=== PATIENT | female | born 1960 | race Caucasian/White ===

== ENCOUNTER 2018-04-24 14:14 | Outpatient (CLI) | payer BC, SELFPAY ==
--- NOTE | 2018-04-24 14:10 | DI.RAD_ITS ---
SYMPTOMS/DIAGNOSIS: PAIN PELVIS AND RIGHT HIP: The hip joint spaces are well maintained. There is mild acetabular spurring. A small bony density is seen adjacent to the right superior acetabulum. There is spurring from the iliac wings and greater trochanters. Mild spurring is also seen at the SI joints. IMPRESSION: Mild degenerative changes of both hips, right slightly greater than left. RIGHT KNEE: Weightbearing AP and lateral views were performed. There are small spurs from the medial femoral condyle, medial tibial plateau and patella. The joint spaces are well maintained. No joint effusion is visible. IMPRESSION: Mild degenerative changes.
== END 2018-04-24 14:34 ==
PROVIDERS: PCP Student in an Organized Health Care Education/Training Program; Visit Provider Physician Assistant Surgical
DX: M25.551 Pain in right hip (principal); M16.0 Bilateral primary osteoarthritis of hip; M25.561 Pain in right knee; M17.11 Unilateral primary osteoarthritis, right knee
CPT/HCPCS: 73502; 73560

== ENCOUNTER 2018-05-31 14:38 | Outpatient (CLI) | payer BC, SELFPAY ==
[2018-05-31 15:09] LABS: HCT 35.5 % (36.0-46.0); HGB 12.3 g/dL (12.0-15.5); Mean Corp. HGB Concentration 34.6 g/dL (32.0-36.0); Mean Corpuscular Hemoglobin 32.2 pg (27.0-33.0); Mean Corpuscular Volume 92.9 fL (80-95); Mean Platelet Volume 11.6 fL (8.0-11.0); Platelet Count 149 x1000/uL (130-400); RBC 3.82 m/cumm (4.00-5.20); RBC Distribution Width 12.3 % (11.7-14.6); White Blood Cell Count 6.12 k/cumm (4.4-10.8)
[2018-05-31 15:48] LABS: ALT 25 U/L (12-78); AST 20 U/L (15-37); Albumin 3.6 g/dL (3.4-5.0); Alkaline Phosphatase 96 U/L (46-116); Anion Gap 10.1 mmol/L (3-11); BUN 14 mg/dL (7-18); Bilirubin, Total 0.3 mg/dL (0.2-1.0); CO2 27.9 mmol/L (21.0-32.0); CREATININE 0.66 mg/dL (0.55-1.02); Calcium 8.7 mg/dL (8.5-10.1); Chloride 105 mmol/L (98-107); Cholesterol 148 mg/dL (50-200); Glucose 94 mg/dL (70-100); HDL Cholesterol 79 mg/dL (40-60); LDL CHOLESTEROL 58 mg/dL (<100); Potassium 3.9 mmol/L (3.5-5.1); Sodium 143 mmol/L (136-145); Total Protein 6.5 g/dL (6.4-8.2); Triglyceride 58 mg/dL (30-150)
== END 2018-05-31 14:58 ==
PROVIDERS: PCP Student in an Organized Health Care Education/Training Program; Visit Provider Student in an Organized Health Care Education/Training Program
DX: K51.90 Ulcerative colitis, unspecified, without complications (principal); J45.909 Unspecified asthma, uncomplicated; Z13.220 Encounter for screening for lipoid disorders; Z98.84 Bariatric surgery status
CPT/HCPCS: 36415; 80053; 80061; 83721; 85027

== ENCOUNTER 2018-06-21 16:42 | Outpatient (REF) | payer BC, SELFPAY ==
--- NOTE | 2018-06-21 15:25 | PAPFT_PTH ---
PATIENT: Adali Gomez LOC: [facility] U#:[id number] AGE/SX: 57/F ROOM: RE06/21/[address]: Stacy Webb NP : 1960 BED: DIS: 06/21/2018 SPEC #: [id number] RECD: 06/21/18 17:48 STATUS: HERBERT REICH #: [id number] JOANIE: 06/21/18 15:[address]: Stacy Webb NP DEPT: [facility] Cytology RECD BY: Jannet Mobley ENTERED: 06/21/18 17:48 SP TYPE: PAPFT OTHR DR: Kira Ying, DO Tissues: 1 - CX/ENDOCX FOR PAP SMEARS Procedures: PAP THIN PREP/[facility] Screening HPV DNA PROBE Comments: [id number]
== END 2018-06-21 17:02 ==
LOC: LBN 16:42
PROVIDERS: PCP Student in an Organized Health Care Education/Training Program; Visit Provider Nurse Practitioner Women's Health
DX: Z12.4 Encounter for screening for malignant neoplasm of cervix (principal); Z11.51 Encounter for screening for human papillomavirus (HPV)
CPT/HCPCS: 88142; 87624

== ENCOUNTER 2019-01-28 06:45 | Emergency (ER) | payer BC, SELFPAY ==
--- NOTE | 2019-01-28 06:50 | ED.GENADUL_ITS ---
Discharge Plan Disposition Patient Disposition: HOME Condition: Good Discharge Details Chief Complaint: RashLesion Clinical Impression: Rash Primary Care Provider: Kira Ying ED Provider: Quincy Mathur Home Meds and New Rx's Prescriptions: New loratadine 10 mg capsule 10 mg PO DAILY Qty: 10 RF: 0 hydroxyzine HCl 25 mg tablet 25 mg PO TID Qty: 20 RF: 0 prednisone 50 mg tablet 50 mg PO DAILY Qty: 5 RF: 0 No Action pregabalin 50 mg capsule 50 mg PO BID Qty: 180 RF: 2 sertraline 50 mg tablet 50 mg PO DAILY Qty: 90 RF: 4 fluticasone furoate 27.5 mcg/actuation spray,suspension 2 spray STEPHANI DAILY Qty: 18.2 RF: 0 multivitamin 1 EACH tablet 1 ea PO BID RF: 0 polyethylene glycol 3350 [Miralax] 17 GM powder in packet 17 g PO DAILY PRNRF: 0 anastrozole [Arimidex] 1 MG tablet 1 mg PO DAILY RF: 0 meclizine 25 MG tablet 25 mg PO TID PRNQty: 20 RF: 2 ascorbic acid (vitamin C) [Vitamin C] 1,000 MG tablet 1,000 mg PO DAILY RF: 0 epinephrine [EpiPen 2-Vincent] 0.3 MG/0.3 ML auto-injector 0.3 mg IM ONCE Qty: 1 RF: 1 cyanocobalamin (vitamin B-12) 1,000 MCG tablet 1,000 mcg PO DAILY RF: 0 albuterol sulfate [ProAir HFA] 90 mcg/actuation HFA aerosol inhaler 2 puff Inhalation Q4H PRN Qty: 1 RF: 3 cyclobenzaprine 10 mg tablet 10 mg PO HS PRN (Reason: muscle spasm) Qty: 10 RF: 1 Discharge Instructions Instructions: Acute Rash (ED) Additional Instructions: At this time it appears that your rash is hives, I am uncertain as to what brought it on though. It is important to watch her closely to see if it is worsening or improving. Please take the loratadine and Atarax as directed. If you do not note any improvement with this over the next 24 to 48 hours please start the steroid prednisone as directed. If you notice any worsening of your symptoms, or any new symptoms such as blisters, lesions in your mouth, burning when you pee, vomiting, diarrhea, fever, chills, shortness of breath, chest pain, numbness, weakness, or fainting , please return immediately to the [facility] department for reevaluation. Please follow up with your primary care provider as soon as possible for reassessment and reevaluation. As always, it was a pleasure participating in your medical care today. Referrals: Kira Ying DO [Primary Care Provider] - Medical Decision Making This is a pleasant 58-year-old female who presents with mild rash below the belt line. Rash is mildly itchy, however the itchiness is diffuse over her body although the rash is limited. She notably denies any contact with plants, changes in any soaps detergents or creams or close. No new pets. Physical exam demonstrates a very mild easily blanchable macular rash over the anterior abdomen and the buttock below the belt line. No concerning red flags of fever, antiepileptic medications. No current clinical evidence of staph scalded skin syndrome, erythema multiforme, erythema migrans, toxic epidermal necrolysis, Vanegas-Lamine syndrome, Kawasaki-like rash, meningococcemia, pemphigus vulgaris, or necrotizing fasciitis. Uncertain as to the exact causative etiology of the patient's rash, however it appears notably mild at this time. We will recommend Benadryl, loratadine and Atarax. Will recommend this treatment for the next 24 hours and if she notes no improvement then she should start her steroid. Discussed red flags which to return the importance of close follow-up. I have extensively reviewed the treatment plan and discharge instructions with the patient. I have addressed all patient concerns at this time. The patient was made aware of what symptoms to monitor for that would warrant a return to the emergency department. Discussed the plan with the patient, they demonstrate verbal understanding and agreement with our assessment and plan at this time. HPI General Date/Time Provider Initiated Documentation: 01/28/19 06:49 . HPI Narrative: This is a 58-year-old female with a past medical history of reactive airway disease, previous obesity, fibromyalgia, previous breast cancer in 2010 who presents today for evaluation of rash. Patient states that she initially noticed a mild rash below her belt line a few weeks ago that she attributed to heat and sweating, however this went away on its own. However 24 hours ago she again noticed a rash that started under her belt line, and is spread to her buttock region. And although the rash is relatively stationary to this area she has noted itching throughout her entire body. She denies any vesicles, chest pain, shortness of breath, dysuria. She does admit to some mild eye irritation. She denies any vision changes. She extensively denies any new detergents, soaps, fragrances, closed, sheets, pets, animals, lotions, foods, medications. She is not on any antiepileptic medications. Related Data Home Medications Medication Instructions Recorded Confirmed multivitamin 1 ea PO BID 05/22/12 11/01/18 polyethylene glycol 3350 [Miralax] 17 g PO DAILY PRN packet 04/11/14 11/01/18 anastrozole [Arimidex] 1 mg PO DAILY tab 07/25/15 11/01/18 meclizine 25 mg PO TID PRN #20 tab 07/25/15 11/01/18 ascorbic acid (vitamin C) [Vitamin 1,000 mg PO DAILY 08/30/16 11/01/18 C] epinephrine [EpiPen 2-Vincent] 0.3 mg IM ONCE #1 pen 08/30/16 11/01/18 cyanocobalamin (vitamin B-12) 1,000 mcg PO DAILY 01/14/17 11/01/18 albuterol sulfate 90 mcg/actuation 2 puff INHALATION Q4H PRN #1 12/08/17 11/01/18 aerosol inhaler inhaler pregabalin 50 mg capsule 50 mg PO BID #180 cap 06/14/18 11/01/18 sertraline 50 mg tablet 50 mg PO DAILY #90 tab-cap 06/14/18 11/01/18 fluticasone furoate 27.5 2 spray STEPHANI DAILY #18.2 ml 11/01/18 11/01/18 mcg/actuation nasal spray,suspension cyclobenzaprine 10 mg tablet 10 mg PO HS PRN #10 tab 01/12/19 hydroxyzine HCl 25 mg PO TID #20 tab 01/28/19 loratadine 10 mg PO DAILY #10 cap 01/28/19 prednisone 50 mg PO DAILY #5 tab 01/28/19 Previous Rx's Medication Instructions Recorded albuterol sulfate 90 mcg/actuation 2 puff INHALATION Q4H PRN #1 12/08/17 aerosol inhaler inhaler pregabalin 50 mg capsule 50 mg PO BID #180 cap 06/14/18 sertraline 50 mg tablet 50 mg PO DAILY #90 tab-cap 06/14/18 fluticasone furoate 27.5 2 spray STEPHANI DAILY #18.2 ml 11/01/18 mcg/actuation nasal spray,suspension cyclobenzaprine 10 mg tablet 10 mg PO HS PRN #10 tab 01/12/19 hydroxyzine HCl 25 mg PO TID #20 tab 01/28/19 loratadine 10 mg PO DAILY #10 cap 01/28/19 prednisone 50 mg PO DAILY #5 tab 01/28/19 Allergies Allergy/AdvReac Type Severity Reaction Status Date / Time Sulfa (Sulfonamide Allergy Severe rash Verified 12/15/18 15:30 Antibiotics) venom-honey bee Allergy Intermediate sick - Verified 12/15/18 15:30 lightheaded, nausea Review of Systems All systems reviewed & are unremarkable except as noted in HPI and below PFSH Medical History (Updated 12/15/18 @ 15:53 by Kira Ying DO) Acute medial meniscal injury of left knee (Acute 08/13/16) Allergic rhinitis (Chronic 05/04/11) Stefani-D, no longer (11/2018). Arthritis Asthma Asthma (Chronic 05/04/11) Primarily exercise-induced Backache, unspecified (Acute 05/04/11) Chest pain, unspecified (Acute 05/04/11) Complex tear of medial meniscus, current injury, left knee, subsequent encounter (Acute 08/13/16) De Quervain's tenosynovitis (Acute 04/16/15) Casper Feliciano MD Depressive disorder (Chronic 05/04/11) Doing well with Sertraline Exercise-induced asthma (Chronic 05/04/11) Primarily exercise-induced Family history of colon cancer (Chronic 05/04/11) RECTAL CANCER Fibromyalgia (Chronic) Rheumatology [facility] H/O dysmenorrhea (Acute 05/04/11) last annual [facility] 12/13/11; NOW POST MENOPAUSAL Herpes simplex (Acute 05/04/11) Herpes simplex with unspecified complication (Acute 05/04/11) Internal derangement of right knee (Chronic) Injected 04/24/2018 Lump or mass in breast (Acute 05/04/11) Malignant neoplasm of female breast Malignant neoplasm of female breast (Acute 10/19/10) BILATERAL PARTIAL MASTECTOMIES, DR GARCIA ([facility]) ONCOLOGY Morbid obesity (Resolved 05/04/11) Myalgia and myositis (Chronic 05/04/11) Neurogenic thoracic outlet syndrome (Chronic 03/12/16) Left Obesity Obstructive sleep apnea (Chronic 06/29/16) [facility] severe CPAP Onychia of finger (Acute 05/04/11) Pes anserinus bursitis of both knees (Acute 08/26/16) Premenopausal menorrhagia Rectal/anal hemorrhage (Acute 05/04/11) Recent flare of rectal bleeding (Mar 2017), awaiting GI eval (May 2017) Rheumatoid arthritis (Chronic 05/04/11) Trochanteric bursitis, left hip (Chronic) Ulcerative colitis, unspecified (Chronic 05/04/11) POSSIBLE INFLAM BOWEL VS PROCTITIS, [facility] REC GI CONSULT, PATHOLOGY UNCLEAR per patient report form recent GI visit, 06/2017 Ulcerative proctitis Surgical History (Updated 12/15/18 @ 16:31 by Kira Ying DO) Arthroplasty of knee left Cholecystectomy (03/21/94) [facility] CT Colonoscopy - MAC (03/08/17) 2013 CYST REMOVAL NECK Hx of bariatric surgery (Acute) [facility] Dr Segal, Sleeve Gastrectomy, Dec 2016 Ligation of fallopian tube Oophrectomy, Right PARTIAL MASTECTOMY (11/10/10) B/L sleeve gastrectomy (01/03/17) [facility] Dr Segal Social History Smoking/Tobacco Use Status: Former Tobacco Use Drug use: Never Female Reproductive History Menstrual Menopause type: natural Exam Narrative Exam Narrative: 1.Const: Well-nourished, Well-developed, appearing stated age 2.Eyes: PERRL, no conjunctival injection, and symmetrical lids. 3.ENT: Atraumatic external nose and ears. Moist MM. Neck: Symmetric, trachea midline, No thyromegaly. 4.CVS: +S1/S2, No murmurs or gallops. Peripheral pulses 2+ and equal in all extremities. Brisk capillary refill in all extremities. 5.RESP: Unlabored respiratory effort. Clear to auscultation bilaterally. No wheezes rales or rhonchi 6.GI: Soft, Nontender/Nondistended, No hepatosplenomegaly. No guarding or rebound. 7.MSK: Normocephalic/Atraumatic, Extremities w/o deformity or ttp No cyanosis or clubbing, Normal movement of all extremities 8.Skin: Warm, Dry. There is a very light, mild, easily blanchable diffuse macular rash primarily below the belt line in the anterior abdomen and the buttock. 2 or 3 small lesions noted on the left forearm. No lesions in the intertriginous areas. No lesions on the palms or soles of the feet. Negative Nikolsky sign. No large vesicles or bulla. No palpable purpura. No oral lesions. No mucosal lesions. No evidence of severe cellulitis. No evidence of vaccine preventable rash. 9.Neuro: mannequin maker II-XII grossly intact. Sensation grossly intact, no focal neurologic deficits. 10.Psych: (AAO) x3. Appropriate mood and affect
[2019-01-28 06:59] VITALS: BP 125/74; PULSE 91; RESP 18; TEMP 37; O2SAT 99
[2019-01-28 07:21] VITALS: BP 125/74; PULSE 91; RESP 18; TEMP 37; O2SAT 99
== END 2019-01-28 07:19 | disposition home or self-care (01) ==
LOC: ER 07:15
PROVIDERS: Emergency Provider Student in an Organized Health Care Education/Training Program; PCP Student in an Organized Health Care Education/Training Program
DX: R21 Rash and other nonspecific skin eruption (principal); L29.9 Pruritus, unspecified
CPT/HCPCS: 99283

== ENCOUNTER 2019-11-07 00:35 | Outpatient (CLI) | payer BC, SELFPAY ==
--- NOTE | 2019-11-07 07:12 | DI.RAD_ITS ---
EXAM: XR CERVICAL SPINE COMP 4-5V CLINICAL HISTORY: r/o bony pathology,LUE NUMBNESS,H/O NECK PAIN,Z87.39,R20.0. TECHNIQUE: 2D digital imaging was performed. COMPARISON: No exams were available for comparison FINDINGS: BONES: No fracture or destructive lesion. DISKS: Intervertebral disc spaces are maintained. There are endplate osteophytes, projecting mainly anteriorly.. There are facet degenerative changes greatest at C4-5 and C7-T1. There is no visible neural foraminal narrowing. ALIGNMENT: Cervical spinal alignment is within normal limits. The odontoid and atlantoaxial articulat ions are normal. SOFT TISSUE: Normal. The lung apices are clear. IMPRESSION: Mild degenerative changes. DATA REPOSITORY: RADIATION DOSE DELIVERED:
== END 2019-11-07 00:55 ==
PROVIDERS: PCP Student in an Organized Health Care Education/Training Program; Visit Provider Student in an Organized Health Care Education/Training Program
DX: M47.812 Spondylosis without myelopathy or radiculopathy, cervical region (principal)
CPT/HCPCS: 72050

== ENCOUNTER 2020-01-02 02:24 | Outpatient (CLI) | payer BC, SELFPAY ==
[2020-01-02 07:49] LABS: HCT 36.6 % (36.0-46.0); HGB 12.8 g/dL (11.2-15.7); MCH 33.2 pg (27.0-33.0); MCV 95.1 fL (80-95); MPV 11.6 fL (8.0-11.0); Platelet Count 166 10^3/uL (130-400); RBC 3.85 10^6/uL (3.93-5.22); RDW 11.8 % (11.7-14.6); RDW-SD 40.8 fL; WBC 5.84 10^3/uL (4.4-10.8)
[2020-01-02 08:42] LABS: Anion Gap 8.2 mmol/L (3-11); BUN 13 mg/dL (7-18); CO2 29.8 mmol/L (21.0-32.0); CREATININE 0.57 mg/dL (0.55-1.02); Calcium 8.9 mg/dL (8.5-10.1); Calculated LDL 70 mg/dL (<100); Chloride 106 mmol/L (98-107); Cholesterol 177 mg/dL (<200); Glucose 81 mg/dL (74-106); HDL Cholesterol 88 mg/dL (40-60); Potassium 3.7 mmol/L (3.5-5.1); Sodium 144 mmol/L (136-145); TSH (W/Ref FT4) 1.19 uIU/mL (0.36-3.74); Triglyceride 98 mg/dL (<150)
== END 2020-01-02 02:44 ==
PROVIDERS: PCP Student in an Organized Health Care Education/Training Program; Visit Provider Student in an Organized Health Care Education/Training Program
DX: N63.0 Unspecified lump in unspecified breast (principal); Z79.1 Long term (current) use of non-steroidal anti-inflammatories (NSAID)
CPT/HCPCS: 36415; 80048; 80061; 85027; 84443

== ENCOUNTER 2020-06-02 17:17 | Outpatient (CLI) | payer BC, SELFPAY ==
--- NOTE | 2020-06-02 17:15 | RT.EKG_ITS ---
APPROVED REPORT Exam: Resting ECG Patient Location: O HR:66 bpm ECG Measurements Heart Rate 66 AXIS TN 165 P 36 QRSd 95 QRS 8 QT 389 T 31 QTc 409 Conclusion Sinus rhythm...normal P axis, V-rate 60- 99 Normal Electrocardiogram
== END 2020-06-02 17:18 | disposition home or self-care (01) ==
LOC: DI.CM 17:17
PROVIDERS: PCP Student in an Organized Health Care Education/Training Program; Visit Provider Physician Assistant
DX: R07.9 Chest pain, unspecified (principal)
CPT/HCPCS: 93010

== ENCOUNTER 2020-06-02 18:10 | Emergency (ER) | payer BC, SELFPAY ==
[2020-06-02] VITALS (40 sets, daily range): BP systolic 114–154; BP diastolic 60–101; PULSE 68–82; RESP 10–26; TEMP 36.3–36.6; O2SAT 96–100
--- NOTE | 2020-06-02 18:00 | RT.EKG_ITS ---
APPROVED REPORT Exam: Resting ECG Patient Location: E HR:73 bpm ECG Measurements Heart Rate 73 AXIS UT 149 P 51 QRSd 97 QRS -10 QT 371 T 42 QTc 409 Conclusion Sinus rhythm...normal P axis, V-rate 60- 99 I have reviewed and interpreted ECG and agree with software generated interpretation. Otherwise normal ECG
--- NOTE | 2020-06-02 18:30 | DI.RAD_ITS ---
EXAM: XR CHEST 2V PA LATERAL CLINICAL HISTORY: pain TECHNIQUE: 2D digital imaging was performed. COMPARISON: CR CHEST 2 VIEWS PA,LAT from 05/26/2017 FINDINGS: The heart is not enlarged. The lungs are clear and well expanded. No pleural effusion seen. Mediastin al contours appear intact. Surgical clips noted in both breasts and in the right upper quadrant of t he abdomen. IMPRESSION: No evidence of acute process. RADIATION DOSE DELIVERED: Total DLP
[2020-06-02 19:07] LABS: Abs Immature Grans 0.01 10^3/uL (0.0-0.06); Absolute Basophil Count 0.03 10^3/uL (0.0-0.2); Absolute Lymphocyte Count 2.46 10^3/uL (1.2-3.4); Absolute Monocyte Count 0.38 10^3/uL (0.1-0.8); Absolute Neutrophil Count 3.11 10^3/uL (1.2-6.7); Basophils % 0.5; Eosinophils % 1.6; HCT 39.7 % (36.0-46.0); HGB 13.6 g/dL (11.2-15.7); Immature Grans % 0.2; Lymphocytes % 40.4; MCH 33.1 pg (27.0-33.0); MCHC 34.3 % (32.0-36.0); MCV 96.6 fL (80-95); Monocytes % 6.2; Neutrophils % 51.1; Nucleated RBC 0 %; Platelet Count 181 10^3/uL (130-400); RBC 4.11 10^6/uL (3.93-5.22); RDW 12.1 % (11.7-14.6); RDW-SD 43.1 fL; WBC 6.09 10^3/uL (4.4-10.8)
[2020-06-02] MEDS: Aspirin 81 MG CHEW 324 MG CH (19:11)
--- NOTE | 2020-06-02 19:16 | W.ED.GENAD ---
Discharge Plan Disposition Patient Disposition: HOME Condition: Stable Discharge Details Clinical Impression: Chest pain, unspecified Primary Care Provider: Kira Ying ED Provider: Rohit Hightower Home Meds and New Rx's Prescriptions: Continued epinephrine [EpiPen 2-Vincent] 0.3 mg/0.3 mL auto-injector 0.3 mg IM ONCE Qty: 1 RF: 1 fluticasone furoate 27.5 mcg/actuation spray,suspension 2 spray STEPHANI DAILY Qty: 18.2 RF: 0 multivitamin 1 EACH tablet 1 ea PO BID RF: 0 anastrozole [Arimidex] 1 MG tablet 1 mg PO DAILY RF: 0 meclizine 25 MG tablet 25 mg PO TID PRNQty: 20 RF: 2 ascorbic acid (vitamin C) [Vitamin C] 1,000 MG tablet 1,000 mg PO DAILY RF: 0 cyanocobalamin (vitamin B-12) 1,000 MCG tablet 1,000 mcg PO DAILY RF: 0 calcium citrate-vitamin D3 315-200 mg-unit tablet 2 tab PO BID RF: 0 ibuprofen 800 mg tablet 800 mg PO TID PRN (Reason: pain) Qty: 60 RF: 0 sertraline 50 mg tablet 50 mg PO DAILY RF: 0 Discharge Instructions Instructions: Chest Pain (ED) Additional Instructions: At this time your rapid cardiac rule out here in the ER was negative. You responded nicely to the GI cocktail, likely discussed, you may use [id number] medications such as omeprazole for symptomatic control. We discussed the importance of watching for new or worsening symptoms and return to the ER for any concerns. Otherwise I would like you to contact your primary care provider for prompt outpatient reevaluation. We discussed that outpatient stress test and/or echocardiogram for further evaluation of a cardiac etiology very well may be indicated. Medical Decision Making This is a 59-year-old female presenting with 3-day history of intermittent anterior, central, slightly left chest pain. Nothing really makes it better or worse, later she tells me that rubbing the area does make it slightly better. She denies cardiac history, recent illness or trauma, shortness of breath, cough, radiation of her discomfort. She had what she described as indigestion last week, took Tums with full resolution of those symptoms. She does have reproducible chest wall discomfort. Overall I feel as though her presentation is low suspicion for ACS; however, will initiate a cardiac work-up, give full dose aspirin. Patient is comfortable with this plan. Initial laboratory values are unremarkable for obvious emergent process. Patient was given a GI cocktail and reports that her pain has resolved completely. Heart score 3, low risk stratification category Discussed overall evaluation and risk stratification. Patient is agreeable to awaiting a repeat EKG and troponin at the 3-hour timeframe. Patient resting comfortably, no acute distress, remains asymptomatic. Reports that her pain is returning slightly, requesting another GI cocktail. GI cocktail given, patient once again asymptomatic. Repeat EKG obtained at 2214, please see official report by Dr. Mathur. Sinus rhythm, ventricular rate of 70. No STEMI. Repeat troponin remains less than 0.05. Discussed repeat EKG and troponin with patient. Patient remains asymptomatic. Once again discussed low risk stratification. Using shared decision-making we discussed disposition. Patient would prefer to be discharged home, will contact her primary care provider tomorrow to discuss outpatient reevaluation including potential stress test and echocardiogram for her discomfort. In the meantime given there seems to be some GI component, she will take [id number] omeprazole for her symptoms. She was encouraged to return to the ER for new or worsening symptoms. She is comfortable with this plan and has no additional questions or concerns. Medical Records Medical records reviewed: Yes I reviewed the patient's medical records. Imaging Data Radiologic Study: Attestation: I personally reviewed and interpreted this imaging study as follows: Imaging: X-Ray Radiologist's impression: Chest x-ray read by radiology as negative Lab Data Lab results reviewed: Yes I reviewed the patient's lab results. Lab results narrative: Laboratory Tests Range/Units 06/02/20 06/02/20 06/02/20 18:20 18:20 18:20 WBC (4.4-10.8) 10^3/uL 6.09 RBC (3.93-5.22) 10^6/uL 4.11 Hgb (11.2-15.7) g/dL 13.6 Hct (36.0-46.0) % 39.7 MCV (80-95) fL 96.6 H MCH (27.0-33.0) pg 33.1 H MCHC (32.0-36.0) % 34.3 RDW (11.7-14.6) % 12.1 Plt Count (130-400) 10^3/uL 181 MPV (8.0-11.0) fL 12.0 H Immature Gran % 0.2 Neutrophils % 51.1 Lymphocytes % 40.4 Monocytes % 6.2 Eosinophils % 1.6 Basophils % 0.5 Nucleated RBC % % 0 Absolute Neutrophils (1.2-6.7) 10^3/uL 3.11 Absolute Lymphocytes (1.2-3.4) 10^3/uL 2.46 Absolute Monocytes (0.1-0.8) 10^3/uL 0.38 Absolute Eosinophils (0.0-0.7) 10^3/uL 0.10 Absolute Basophils (0.0-0.2) 10^3/uL 0.03 PT (9.3-11.0) sec 10.4 INR (0.9-1.1) 1.0 APTT (21.0-27.5) sec 23.6 Sodium (136-145) mmol/L 141 Potassium (3.5-5.1) mmol/L 3.3 L Chloride (98-107) mmol/L 103 Carbon Dioxide (21.0-32.0) mmol/L 29.5 Anion Gap (3-11) mmol/L 8.5 BUN (7-18) mg/dL 14 Creatinine (0.55-1.02) mg/dL 0.7 Estimated GFR/1.73 m2 (mL/min/1.73m2) >= 60.00 Glucose (74-106) mg/dL 96 Calcium (8.5-10.1) mg/dL 9.2 Magnesium (1.8-2.4) mg/dL 2.1 Total Bilirubin (0.2-1.0) mg/dL 0.4 AST (15-37) U/L 19 ALT (14-59) U/L 24 Alkaline Phosphatase (46-116) U/L 92 Troponin I (<0.06) ng/mL < 0.05 Total Protein (6.4-8.2) g/dL 8.1 Albumin (3.4-5.0) g/dL 4.2 Range/Units 06/02/20 21:43 WBC (4.4-10.8) 10^3/uL RBC (3.93-5.22) 10^6/uL Hgb (11.2-15.7) g/dL Hct (36.0-46.0) % MCV (80-95) fL MCH (27.0-33.0) pg MCHC (32.0-36.0) % RDW (11.7-14.6) % Plt Count (130-400) 10^3/uL MPV (8.0-11.0) fL Immature Gran % Neutrophils % Lymphocytes % Monocytes % Eosinophils % Basophils % Nucleated RBC % % Absolute Neutrophils (1.2-6.7) 10^3/uL Absolute Lymphocytes (1.2-3.4) 10^3/uL Absolute Monocytes (0.1-0.8) 10^3/uL Absolute Eosinophils (0.0-0.7) 10^3/uL Absolute Basophils (0.0-0.2) 10^3/uL PT (9.3-11.0) sec INR (0.9-1.1) APTT (21.0-27.5) sec Sodium (136-145) mmol/L Potassium (3.5-5.1) mmol/L Chloride (98-107) mmol/L Carbon Dioxide (21.0-32.0) mmol/L Anion Gap (3-11) mmol/L BUN (7-18) mg/dL Creatinine (0.55-1.02) mg/dL Estimated GFR/1.73 m2 (mL/min/1.73m2) Glucose (74-106) mg/dL Calcium (8.5-10.1) mg/dL Magnesium (1.8-2.4) mg/dL Total Bilirubin (0.2-1.0) mg/dL AST (15-37) U/L ALT (14-59) U/L Alkaline Phosphatase (46-116) U/L Troponin I (<0.06) ng/mL < 0.05 Total Protein (6.4-8.2) g/dL Albumin (3.4-5.0) g/dL ECG Data Attestation: I personally reviewed and interpreted this ECG (s) as follows: Interpretation: Initial EKG reviewed by Dr. Mathur, please see his official report. Sinus rhythm, ventricular rate of 73, no STEMI. HPI General Mode of arrival: ambulatory. Date/Time Provider Initiated Documentation: 06/02/20 18:27. Limitations to Documentation: no limitations. Information obtained by: patient. HPI Narrative: This is a 59-year-old female, past medical history that includes bilateral breast cancer currently in remission, partial mastectomy, arthritis, asthma, depression, fibromyalgia, former smoker, presenting to the ER today for what she describes as 3-day history of intermittent chest pain. Patient states that the pain has been well over her central anterior chest may be slightly worse on the left side. Nothing really makes it worse or better. She states that she did have increased belching yesterday. Mild global headache over the past couple of days. She was experiencing acid reflux sometime last week, took Tums and the pain resolved completely. Patient states that she has been rubbing the area with her fingers and this does seem to make her symptoms better. Pain does not radiate to her back, into her shoulders, jaw, neck, down her arm. She denies numbness, tingling, weakness. Denies recent illness or trauma. Denies visual changes, shortness of breath, difficulty breathing, abdominal pain, nausea, vomiting, change in bowel or bladder function. Patient states a normal stress test likely 10 years ago. Her pain is described as sharp and aching, worse was a 10 out of 10 yesterday, now a 4 out of 10. Related Data Home Medications Medication Instructions Recorded Confirmed multivitamin 1 ea PO BID 05/22/12 06/02/20 anastrozole [Arimidex] 1 mg PO DAILY tab 07/25/15 06/02/20 meclizine 25 mg PO TID PRN #20 tab 07/25/15 06/02/20 ascorbic acid (vitamin C) [Vitamin 1,000 mg PO DAILY 08/30/16 06/02/20 C] cyanocobalamin (vitamin B-12) 1,000 mcg PO DAILY 01/14/17 06/02/20 fluticasone furoate 27.5 2 spray STEPHANI DAILY #18.2 ml 11/01/18 06/02/20 mcg/actuation nasal spray,suspension calcium citrate 315 mg-vitamin D3 2 tab PO BID tab 02/01/19 06/02/20 5 mcg (200 unit) tablet epinephrine 0.3 mg/0.3 mL 0.3 mg IM ONCE #1 pen 10/25/19 06/02/20 injection, auto-injector ibuprofen 800 mg tablet 800 mg PO TID PRN #60 tab 01/12/20 06/02/20 sertraline 50 mg PO DAILY 06/02/20 06/02/20 Previous Rx's Medication Instructions Recorded fluticasone furoate 27.5 2 spray STEPHANI DAILY #18.2 ml 11/01/18 mcg/actuation nasal spray,suspension epinephrine 0.3 mg/0.3 mL 0.3 mg IM ONCE #1 pen 10/25/19 injection, auto-injector ibuprofen 800 mg tablet 800 mg PO TID PRN #60 tab 01/12/20 Allergies Allergy/AdvReac Type Severity Reaction Status Date / Time Sulfa (Sulfonamide Allergy Severe rash Verified 06/02/20 18:21 Antibiotics) venom-honey bee Allergy Intermediate sick - Verified 06/02/20 18:21 lightheaded, nausea General Stated Complaint: Chest Pain WINSOME: 2 Review of Systems Constitutional Constitutional: Denies fatigue, Denies fever(s), Reports headache(s) and Denies weakness Eyes Eyes: Denies change in vision ENT Ears, Nose, Mouth, and Throat: Reports headache(s) and Denies neck pain Cardiovascular Cardiovascular: Reports chest pain and Denies dyspnea Respiratory Respiratory: Denies cough and Denies dyspnea Gastrointestinal Gastrointestinal: Denies abdominal pain, Reports belching, Denies nausea and Denies vomiting Genitourinary Genitourinary: Denies dysuria Musculoskeletal Musculoskeletal: Denies myalgias, Denies neck pain, Denies numbness and Denies tingling Integumentary/Breasts Skin/Breast: Denies rash Neurologic Neurologic: Reports headache(s), Denies numbness, Denies tingling and Denies weakness Endocrine Endocrine: Denies fatigue [facility] Medical History (Updated 06/02/20 @ 22:38 by REHAN Lee) Acute medial meniscal injury of left knee (08/13/16) Allergic rhinitis (05/04/11) Stefani-D, no longer (11/2018). Arthritis Asthma Asthma (05/04/11) Primarily exercise-induced Backache, unspecified (05/04/11) Chest pain, unspecified (05/04/11) Complex tear of medial meniscus, current injury, left knee, subsequent encounter (08/13/16) De Quervain's tenosynovitis (04/16/15) Casper Feliciano MD Depressive disorder (05/04/11) Doing well with Sertraline Exercise-induced asthma (05/04/11) Primarily exercise-induced Family history of colon cancer (05/04/11) RECTAL CANCER Fibromyalgia Rheumatology [facility] H/O dysmenorrhea (05/04/11) last annual [facility] 12/13/11; NOW POST MENOPAUSAL Herpes simplex (05/04/11) Herpes simplex with unspecified complication (05/04/11) Internal derangement of right knee Injected 04/24/2018 Left upper extremity numbness Occurs with outstretched, ext rot, pressured left arm stance .. Probable radiculopathy Lump or mass in breast (05/04/11) ID'd as cancerous, s/p surgery.. Malignant neoplasm of female breast Malignant neoplasm of female breast (10/19/10) BILATERAL PARTIAL MASTECTOMIES, DR GARCIA ([facility]) ONCOLOGY Morbid obesity (05/04/11) Myalgia and myositis (05/04/11) Neurogenic thoracic outlet syndrome (03/12/16) Left Obesity Obstructive sleep apnea (06/29/16) [facility] severe CPAP Onychia of finger (05/04/11) Pes anserinus bursitis of both knees (08/26/16) Premenopausal menorrhagia Rectal/anal hemorrhage (05/04/11) Recent flare of rectal bleeding (Mar 2017), awaiting GI eval (May 2017) Rheumatoid arthritis (05/04/11) Trochanteric bursitis, left hip Ulcerative colitis, unspecified (05/04/11) No active disease x mos, 10/2019. POSSIBLE INFLAM BOWEL VS PROCTITIS, [facility] REC GI CONSULT, PATHOLOGY UNCLEAR per patient report form recent GI visit, 06/2017 Ulcerative proctitis Surgical History Arthroplasty of knee left Cholecystectomy (03/21/94) [facility] Colonoscopy - MAC (03/08/17) 2013 CYST REMOVAL NECK Hx of bariatric surgery [facility] Dr Segal, Sleeve Gastrectomy, Dec 2016 Ligation of fallopian tube Oophrectomy, Right PARTIAL MASTECTOMY (11/10/10) B/L sleeve gastrectomy (01/03/17) [facility] Dr Segal Family History Grandmother Personal history of malignant neoplasm LUNG Aunt No problems noted. Father No problems noted. Social History Smoking/Tobacco Use Status: Former Tobacco Use Smoking risk assessment performed?: Yes Alcohol Intake: current Alcohol Intake frequency: 0-2 drinks per day Alcohol type: wine Drug use: Never Substance use type: does not use Household members: spouse Housing: house Number of Children: 2 number of grandchildren: 3 current occupation: MUSEUM TECHNICIAN What type of physical activity do you participate in: walking, independent ambulation and regular exercise Do you feel safe at home: Yes Do you feel safe in your relationship?: Yes Female Reproductive History Menstrual Menopause type: natural Exam Const General: cooperative, healthy appearing, comfortable and no acute distress Orientation: alert, awake and oriented x3 HENMT Head: normal to inspection, normocephalic and atraumatic Face and sinus: normal facial exam Mouth: moist mucous membranes Eyes General: appearance normal, both eyes and all related structures Conjunctivae: conjunctivae normal Sclera: sclerae normal Neck Neck: normal visual inspection, full ROM, trachea midline, supple and nontender Chest Chest: normal inspection of the chest, tenderness and No rash Chest/axillae images: 1. Point tenderness to palpation. Without erythema, warmth, crepitus. Resp Effort & Inspection: normal respiratory effort and able to speak in complete sentences Auscultation: clear to auscultation bilaterally Cardio Rate: regular rate Rhythm: regular rhythm GI Inspection: normal to inspection Palpation: soft, not firm, no guarding and nontender Back/Spine/Pelvis Back: No back tenderness Skin General skin exam: no rashes or lesions noted Neuro General: patient alert, patient awake, moves all extremities and no focal motor deficits Cognition: normal cognition Speech: speech normal Gait: normal gait Motor: muscle tone normal throughout Sensory Exam: no sensory deficits noted Extrem General: normal to inspection, full ROM, capillary refill normal, no pedal edema and no calf tenderness Psych Appearance: grossly normal Mental Status: mental status grossly normal Course Vital Signs Vital signs: Vital Signs Temperature 36.3 C L 06/02/20 18:16 Pulse 76 06/02/20 18:16 Respiratory Rate 16 06/02/20 18:16 Blood Pressure 152/78 H 06/02/20 18:16 Pulse Oximetry 100 06/02/20 18:16 Temperature 36.3 C L 06/02/20 18:16 Temperature Source Skin 06/02/20 18:16 Pulse 76 06/02/20 18:26 Pulse 82 06/02/20 18:26 Respiratory Rate 12 06/02/20 18:27 Respiratory Effort 06/02/20 18:27 Respiratory Depth Normal 06/02/20 18:27 Respiratory Pattern Normal 06/02/20 18:27 Blood Pressure 154/78 H 06/02/20 18:26 Blood Pressure Mean 98 06/02/20 18:26 Blood Pressure Position Supine 06/02/20 18:16 Pulse Oximetry 100 06/02/20 18:26 Oxygen Delivery Method Room Air 06/02/20 18:16 Oxygen Flow Rate 0 06/02/20 18:16 Pain Level 0 06/02/20 18:27
[2020-06-02 19:27] LABS: PTT Activated 23.6 sec (21.0-27.5); Prothrombin Time 10.4 sec (9.3-11.0)
[2020-06-02 19:33] LABS: ALT 24 U/L (14-59); AST 19 U/L (15-37); Albumin 4.2 g/dL (3.4-5.0); Alkaline Phosphatase 92 U/L (46-116); Anion Gap 8.5 mmol/L (3-11); BUN 14 mg/dL (7-18); Bilirubin, Total 0.4 mg/dL (0.2-1.0); CO2 29.5 mmol/L (21.0-32.0); CREATININE 0.7 mg/dL (0.55-1.02); Calcium 9.2 mg/dL (8.5-10.1); Chloride 103 mmol/L (98-107); Glucose 96 mg/dL (74-106); Magnesium 2.1 mg/dL (1.8-2.4); Potassium 3.3 mmol/L (3.5-5.1); Sodium 141 mmol/L (136-145); Total Protein 8.1 g/dL (6.4-8.2); Troponin I < 0.05 ng/mL (<0.06)
--- NOTE | 2020-06-02 19:46 | DI.VRAD_ITS ---
PROCEDURE INFORMATION: Exam: XR Chest Exam date and time: 06/02/2020 7:37 PM Age: 59 years old Clinical indication: Chest pain and sternal or substernal pain; Prior surgery; Surgery date: 6+ months; Surgery type: Bilat lumpectomy; Patient HX: Pain; Per PT: Central/sternum TECHNIQUE: Imaging protocol: XR of the chest Views: 2 views. COMPARISON: CR CHEST 2 VIEWS PA,LAT 05/26/2017 1:50 PM FINDINGS: Lungs: Unremarkable. No consolidation. Pleural spaces: Unremarkable. No pleural effusion. No pneumothorax. Heart/Mediastinum: Unremarkable. No cardiomegaly. Bones/joints: Unremarkable. Soft tissues: Bilateral breast surgical clips are unchanged. Organs: Prior cholecystectomy. IMPRESSION: No acute cardiopulmonary abnormality. Dictated and Authenticated by: Jose Riggs MD. Ordering:NIKOLE Bee MD
--- NOTE | 2020-06-02 19:52 | NUR.NOTE ---
Nursing Note: First contact with pt after handoff from [facility]. Pt return back to ED from radiology. Reports left under breast pain 06/28. States at worse it was 09/27. Pt reporting no SOB. Pt laughing and talkative. Pt sinus rhythm on monitor. Skin warm/dry. Calllight within reach and educated on use. GCS 15.
[2020-06-02] MEDS: Ibuprofen 800 MG TAB PO (20:30)
--- NOTE | 2020-06-02 22:00 | RT.EKG_ITS ---
APPROVED REPORT Exam: Resting ECG Patient Location: E HR:70 bpm ECG Measurements Heart Rate 70 AXIS ME 153 P 40 QRSd 99 QRS -19 QT 391 T 40 QTc 422 Conclusion Sinus rhythm...normal P axis, V-rate 60- 99
[2020-06-02 22:05] LABS: Troponin I < 0.05 ng/mL (<0.06)
== END 2020-06-02 23:05 | disposition home or self-care (01) ==
PROVIDERS: Emergency Provider Physician Assistant; PCP Student in an Organized Health Care Education/Training Program
DX: R07.89 Other chest pain (principal)
CPT/HCPCS: 36415; 80053; 93005; 99285; 71046; 83735; 84484; 85025; 85610; 85730; 93010

== ENCOUNTER 2020-07-01 01:20 | Outpatient (CLI) | payer BC, SELFPAY ==
--- NOTE | 2020-07-01 08:00 | ETT_ITS ---
APPROVED REPORT Exam: Exercise Treadmill Patient Location: Out-Patient Room/Bed: Stress Nurse: Prachi Fair RN Ordering Provider:QAMAR GRANADOS, Contact Number: [phone] BMI: 25.69 Baseline Rhythm: Sinus Rhythm Indications: CHEST PAIN Medical History Medical History: CP, Arthritis, Depression, Asthma, Fibromyalgia, LUE numbness, Obesity, SAM, RA, Mal ignant neoplasm of breast Cardiac Medications: Omeprazole. Allergies: Sulfa abx, bee venom Cardiac Risk Factors: Asthma, Smoking (former) , Obesity Previous Cardiac Procedures: None. Pretest Chest Pain Characteristics: No chest pain Exercise History: Physically active Physical Disabilities: None. Lung Sounds: Clear to auscultation Heart Sounds: Regular Stress Test Details Test: Exercise stress testing was performed using a Levi protocol. Rest Stress HR Resting HR Supine: 63 bpm Max Heart Rate (APMHR): 159 bpm Resting HR Standin bpm Target HR (85% APMHR): 135 bpm Max HR Achieved: 164 bpm % of APMHR: 103 Recovery HR: 86 bpm HR response to stress: Normal HR response to stress BP Resting BP Supine: 110/78 mmHg Resting BP Standin/80 mmHg Max BP: 164/72 mmHg Recovery BP: 122/76 mmHg BP response to stress: Normal blood pressure response to stress. ECG Resting ECG: Sinus Rhythm Ectopy: None. Stress ECG: Sinus Tachycardia ST Change: No significant ST segment changes noted Arrhythmia: None. Recovery ECG: Sinus Rhythm Recovery ST Change: No significant ST segment changes noted Recovery Arrhythmia: None Clinical Reason for Termination: Fatigue Stress Symptoms: General Fatigue Exercise duration: 11 min18 sec Highest Stage Reached: Stage 4: 4.2 mph at 16% grade. Exercise capacity: 13.46 METs Cardenas Treadmill Score: 11 Rate Pressure Product: [id number] Stress ECG Conclusion 1. The resting electrocardiogram was normal 2. The patient exercised on the Levi protocol and completed a workload of 13.46 METS, limited by fat igue 3. Normal heart rate and blood pressure response to exercise. The patient achieved greater than 100% of predicted heart rate for age 4. Electrocardiographically there was no evidence of myocardial ischemia 5. No dysrhythmias were observed Cardenas Treadmill Score is 11 which is Low risk. Stress Test Summary STAGE Time (mins) Speed (mph) Grade (%) HR BP SYMPTOMS METS Supine 63 110/78 Standing 65 118/80 1 3 1.7 10 114 130/76 4.6 2 6 2.5 12 130 144/72 7 3 9 3.4 14 132 152/74 10.2 1 min recovery 128 164/72 3 min recovery 83 146/60 6 min recovery 86 122/76
== END 2020-07-01 01:40 ==
PROVIDERS: PCP Student in an Organized Health Care Education/Training Program; Visit Provider Nurse Practitioner Adult Health
DX: R07.9 Chest pain, unspecified (principal); J45.909 Unspecified asthma, uncomplicated; Z87.891 Personal history of nicotine dependence; E66.9 Obesity, unspecified
CPT/HCPCS: 93017

== ENCOUNTER 2020-11-19 10:51 | Outpatient (REF) | payer BC, SELFPAY ==
[2020-11-20 15:49] LABS: COVID-19 RT-PCR UVMMC Result Negative (Negative)
== END 2020-11-19 10:52 | disposition home or self-care (01) ==
LOC: LBN 10:51
PROVIDERS: PCP Student in an Organized Health Care Education/Training Program; Visit Provider Physician Assistant
DX: Z20.822 Contact with and (suspected) exposure to COVID-19 (principal)
CPT/HCPCS: U0003

== ENCOUNTER 2021-02-20 18:20 | Outpatient (REF) | payer BC, SELFPAY ==
[2021-02-22 01:39] LABS: COVID-19 RT-PCR UVMMC Result Negative (Negative)
== END 2021-02-20 18:21 | disposition home or self-care (01) ==
LOC: LBN 18:20
PROVIDERS: PCP Student in an Organized Health Care Education/Training Program; Visit Provider Physician Assistant
DX: Z20.822 Contact with and (suspected) exposure to COVID-19 (principal)
CPT/HCPCS: U0003

== ENCOUNTER 2021-02-23 18:45 | Outpatient (REF) | payer BC, SELFPAY ==
[2021-02-24 20:19] LABS: COVID-19 RT-PCR UVMMC Result Negative (Negative)
== END 2021-02-23 18:46 | disposition home or self-care (01) ==
LOC: LBN 18:45
PROVIDERS: PCP Student in an Organized Health Care Education/Training Program; Visit Provider Physician Assistant
DX: Z20.822 Contact with and (suspected) exposure to COVID-19 (principal)
CPT/HCPCS: U0003

== ENCOUNTER 2021-03-02 19:42 | Outpatient (REF) | payer BC, SELFPAY ==
[2021-03-03 02:58] LABS: COVID-19 RT-PCR UVMMC Result Negative (Negative)
== END 2021-03-02 19:43 | disposition home or self-care (01) ==
LOC: LBN 19:42
PROVIDERS: PCP Student in an Organized Health Care Education/Training Program; Visit Provider Nurse Practitioner Family
DX: Z20.822 Contact with and (suspected) exposure to COVID-19 (principal)
CPT/HCPCS: U0003

== ENCOUNTER 2021-03-26 15:21 | Outpatient (REF) | payer BC, SELFPAY ==
[2021-03-27 12:31] LABS: COVID-19 RT-PCR UVMMC Result Negative (Negative)
== END 2021-03-26 15:22 | disposition home or self-care (01) ==
LOC: LBN 15:21
PROVIDERS: PCP Student in an Organized Health Care Education/Training Program; Visit Provider Physician Assistant
DX: Z20.822 Contact with and (suspected) exposure to COVID-19 (principal)
CPT/HCPCS: U0003

== ENCOUNTER 2021-03-30 16:33 | Outpatient (REF) | payer BC, SELFPAY ==
[2021-03-30 20:11] LABS: COVID-19 RT-PCR UVMMC Result Negative (Negative)
== END 2021-03-30 16:34 | disposition home or self-care (01) ==
LOC: LBN 16:33
PROVIDERS: PCP Student in an Organized Health Care Education/Training Program; Visit Provider Nurse Practitioner Family
DX: Z20.822 Contact with and (suspected) exposure to COVID-19 (principal)
CPT/HCPCS: U0003

== ENCOUNTER 2021-03-31 15:57 | Outpatient (REF) | payer BC, SELFPAY ==
[2021-03-31 14:26] LABS: Anion Gap 6.6 mmol/L (3-11); BUN 13 mg/dL (7-18); CO2 30.4 mmol/L (21.0-32.0); CREATININE 0.5 mg/dL (0.55-1.02); Chloride 107 mmol/L (98-107); Glucose 84 mg/dL (74-106); Potassium 4.3 mmol/L (3.5-5.1); Sodium 144 mmol/L (136-145)
== END 2021-03-31 15:58 | disposition home or self-care (01) ==
LOC: NCHCN 15:57
PROVIDERS: PCP Student in an Organized Health Care Education/Training Program; Visit Provider Student in an Organized Health Care Education/Training Program
DX: E87.6 Hypokalemia (principal)
CPT/HCPCS: 80048

== ENCOUNTER 2021-04-24 14:50 | Outpatient (REF) | payer BC, SELFPAY ==
[2021-04-26 01:13] LABS: COVID-19 RT-PCR UVMMC Result Negative (Negative)
== END 2021-04-24 14:51 | disposition home or self-care (01) ==
LOC: LBN 14:50
PROVIDERS: PCP Student in an Organized Health Care Education/Training Program; Visit Provider Nurse Practitioner Family
DX: Z20.822 Contact with and (suspected) exposure to COVID-19 (principal)
CPT/HCPCS: U0003

== ENCOUNTER 2021-04-27 18:56 | Outpatient (REF) | payer BC, SELFPAY ==
[2021-04-28 01:18] LABS: COVID-19 RT-PCR UVMMC Result Negative (Negative)
== END 2021-04-27 18:57 | disposition home or self-care (01) ==
LOC: LBN 18:56
PROVIDERS: PCP Student in an Organized Health Care Education/Training Program; Visit Provider Nurse Practitioner Family
DX: Z20.822 Contact with and (suspected) exposure to COVID-19 (principal)
CPT/HCPCS: U0003

== ENCOUNTER 2021-05-11 16:26 | Outpatient (REF) | payer BC, SELFPAY ==
[2021-05-12 20:01] LABS: COVID-19 RT-PCR UVMMC Result Negative (Negative)
== END 2021-05-11 16:27 | disposition home or self-care (01) ==
LOC: LBN 16:26
PROVIDERS: PCP Student in an Organized Health Care Education/Training Program; Visit Provider Nurse Practitioner Family
DX: Z20.822 Contact with and (suspected) exposure to COVID-19 (principal)
CPT/HCPCS: U0003

== ENCOUNTER 2022-05-05 15:16 | Outpatient (REF) | payer BC, SELFPAY ==
[2022-05-05 12:51] LABS: HCT 39.6 % (36.0-46.0); HGB 13.7 g/dL (11.2-15.7); MCH 32.8 pg (27.0-33.0); MCHC 34.6 % (32.0-36.0); MCV 95 fL (80-95); MPV 11.7 fL (8.0-11.0); Platelet Count 162 10^3/uL (130-400); RBC 4.18 10^6/uL (3.93-5.22); RDW 11.8 % (11.7-14.6); RDW-SD 40.9 fL; WBC 4.76 10^3/uL (4.4-10.8)
[2022-05-05 13:46] LABS: ALT 16 U/L (14-59); AST 24 U/L (15-37); Albumin 4.2 g/dL (3.4-5.0); Alkaline Phosphatase 85 U/L (46-116); Anion Gap 9.4 mmol/L (3-11); BUN 12 mg/dL (7-18); Bilirubin, Total 0.6 mg/dL (0.2-1.0); CO2 28.6 mmol/L (21.0-32.0); CREATININE 0.6 mg/dL (0.55-1.02); Calculated LDL 64 mg/dL (<100); Chloride 105 mmol/L (98-107); Cholesterol 182 mg/dL (<200); Glucose 92 mg/dL (74-106); HDL Cholesterol 104 mg/dL (40-60); Potassium 4.2 mmol/L (3.5-5.1); Sodium 143 mmol/L (136-145); Total Protein 7.1 g/dL (6.4-8.2); Triglyceride 72 mg/dL (<150)
[2022-05-05 13:57] LABS: Vitamin D 25 Total 61.6 ng/mL (30-100)
== END 2022-05-05 15:17 | disposition home or self-care (01) ==
LOC: LBN 15:16
PROVIDERS: PCP Student in an Organized Health Care Education/Training Program; Visit Provider Student in an Organized Health Care Education/Training Program
DX: F32.89 Other specified depressive episodes (principal); K90.9 Intestinal malabsorption, unspecified; Z13.220 Encounter for screening for lipoid disorders; Z86.2 Personal history of diseases of the blood and blood-forming organs and certain disorders involving the immune mechanism; Z98.84 Bariatric surgery status
CPT/HCPCS: 80053; 80061; 82306; 85027; 84443

== ENCOUNTER 2022-06-10 09:32 | Outpatient (CLI) | payer BC, SELFPAY ==
--- NOTE | 2022-06-10 09:15 | DI.RAD_ITS ---
Exam(s) XR FOOT RT COMPLETE EXAM: XR FOOT RT COMPLETE CLINICAL HISTORY: evaluate R 1st MTP pain. TECHNIQUE: 2D digital imaging was performed of the right foot. Three images were obtained. AP, obl ique and lateral views were obtained. COMPARISON: CR RIGHT FOOT COMPLETE from 08/14/2008 FINDINGS: BONES: No acute fracture is present. No bony destructive lesion is seen. There is a small plantar guillaume caneal spur. There is a small enthesophyte at the posterior calcaneus. JOINTS: No dislocation present. Mild degenerative changes are seen at the 1st MTP joint with periarti cular spurring mild joint space narrowing. No erosions are seen. SOFT TISSUE: Normal. IMPRESSION: Mild degenerative changes seen at the 1st MTP joint. No erosions are present. DATA REPOSITORY: RADIATION DOSE DELIVERED:
--- NOTE | 2022-06-10 09:15 | DI.RAD_ITS ---
Exam(s) XR HIP LT AP LAT ONLY EXAM: XR HIP LT AP LAT ONLY CLINICAL HISTORY: eval L hip pain. TECHNIQUE: 2D digital imaging was performed of the left hip. Two views were obtained. AP pelvis an d lateral left hip views were obtained. COMPARISON: No exams were available for comparison FINDINGS: BONES: No acute fracture is present. No bony destructive lesion is seen. JOINTS: No dislocation present. SOFT TISSUE: Normal. IMPRESSION: Unremarkable radiographs of the left hip. DATA REPOSITORY: RADIATION DOSE DELIVERED:
== END 2022-06-10 09:33 | disposition home or self-care (01) ==
LOC: DIORS 09:33
PROVIDERS: PCP Student in an Organized Health Care Education/Training Program; Referring Provider Student in an Organized Health Care Education/Training Program; Visit Provider Student in an Organized Health Care Education/Training Program
DX: M25.552 Pain in left hip (principal); M19.071 Primary osteoarthritis, right ankle and foot; M25.571 Pain in right ankle and joints of right foot; M77.31 Calcaneal spur, right foot
CPT/HCPCS: 73502; 73630

== ENCOUNTER 2022-06-25 07:12 | Day surgery (SDC) | payer BC, SELFPAY ==
--- NOTE | 2022-06-24 08:07 | W.COLOREPORT ---
Date of service: 06/25/22 Time of Service: 19:45 Colonoscopy Report Date of procedure: 06/25/22 Pre-op diagnosis general: hx of UC > 10 yrs Post-op diagnosis procedure note: same Surgeon: Chyna Mcleod Anesthesia Type: General:No Airway Estimated blood loss (mL): 1 Pathology: other Complications: None Disposition: same day Prep: Miralax/Dulcolax Retraction Time: 12 Procedure Description: After informed consent was obtained the patient was taken to the procedure room and placed in a left decubitous position. Monitors were applied and a time out was done. The patients name, date of , procedure, allergies to medications and metal in their body was reviewed. The patient was then sedated. Once sedated and comfortable a rectal exam was done. External exam was normal. Internal exam revealed a normal sphincter tone and no palpable masses. The scope was then introduced and retrofelexed. No internal hemorrhoids were identified. The scope was then advanced to the cecum w/out difficulty. The TI and appendiceal orifice were identified. The prep was BBPS 3 . The scope was then slowly retracted over 12 minutes back into the rectum. There are no polyps or diverticuli present. There is no signs of any acute or chronic colitis. The mucosa is pink and healthy with a normal vascular pattern. There is no cobblestoning, loss of haustral markings, or other signs of longstanding colitis. Two biopsies were taken every 10 cm. All specimen is retrieved and no bleeding is noted. The scope was removed and the patient was woken up and taken back to Same day surgery in stable condition. The patient tolerated the procedure well and there were no immediate complications. Follow up: The patient should follow up in 2 years, path pd unless they develop changes in bowel habits or other new gastrointestinal complaints.
--- NOTE | 2022-06-24 08:08 | PDOC.DSDIS_ITS ---
Date of service: 06/25/22 Time of Service: 09:14 Discharge Plan Disposition Patient Disposition: Home Condition: Good Discharge Details Reason For Visit: colon scope Attending Provider: Chyna Mcleod Primary Care Provider: Kira Ying Home Meds and New Rx's Prescriptions: Continued epinephrine [EpiPen 2-Vincent] 0.3 mg/0.3 mL auto-injector 0.3 mg IM ONCE Qty: 1 1RF fluticasone furoate 27.5 mcg/actuation spray,suspension 2 spray STEPHANI DAILY PRN Rx Instructions: into each nostril meclizine 25 MG tablet 25 mg PO TID PRNQty: 20 Rx Instructions: as needed for vertigo ascorbic acid (vitamin C) [Vitamin C] 1,000 MG tablet 1,000 mg PO DAILY cyanocobalamin (vitamin B-12) 1,000 MCG tablet 1,000 mcg PO DAILY calcium citrate-vitamin D3 315-200 mg-unit tablet 2 tab PO BID Rx Instructions: 02/01/19 [facility] [place] Bariatric surgery recommendation. mk sertraline 50 mg tablet 50 mg PO DAILY Qty: 90 3RF ibuprofen 800 mg tablet 800 mg PO BID PRN (Reason: pain or inflammation) Qty: 60 0RF Rx Instructions: Take with food; Labwork needed if taking regularly Discontinued bisacodyl [Dulcolax (bisacodyl)] 5 mg tablet,delayed release (DR/EC) 5 mg PO ONCE Qty: 4 0RF Rx Instructions: Take according to provider's instructions for colonoscopy prep. polyethylene glycol 3350 17 gram/dose powder 17 g PO ONCE Qty: 238 0RF Rx Instructions: To be taken as directed by prescriber's office for colonoscopy prep. Discharge Instructions Additional Instructions: [facility] Colonoscopy Post- Op Instructions Instructions for Everyone who is given Anesthesia: For your safety, please do the following for the next twenty-four (24) hours: *Do Not operate a motor vehicle (car, truck, motorcycle, etc.) *Do Not drink alcoholic beverages or use any recreational drugs for the first 24 hours or while taking pain medications. The medications in your body may have a reaction that can be dangerous. *Do Not make any important decisions or sign any important papers. Findings: appears normal. Biopsy's were taken Follow up: My office will send a letter in 2 to 3 weeks time with the biopsy results Current guidelines recommend you have a colonoscopy every 2 years 1. No lifting over 20 pounds or strenuous activity for the first 24 hours after your procedure. After 24 hours there are no restrictions on your activity but you may feel fatigued for a few days. 2. After you arrive home you may have a light meal and return to your normal diet as you can tolerate it without feeling sick to your stomach. 3. You may have a bloated, gaseous feeling in your belly (abdomen) after a colonoscopy. Passing gas and belching will help. Walking or lying down on your left side with your knees flexed may relieve the discomfort. Call the office at [phone] (Office) or [phone] (Hospital) right away if you notice any of the following: a.Vomiting of blood or ?coffee ground stools?. b.Rectal bleeding 1Tbsp, blood clots or continuous bleeding. c.Severe belly (abdominal) pain. d.A hard distended belly (abdomen) and an inability to pass gas. 4. Please don?t expect to have a normal BM (bowel movement) for 2-3 days after your procedure. 5. If there are questions regarding the findings of your procedure, please contact your doctor 6. If you are unable to contact your doctor with a problem, contact the hospital at [phone]. 7. Continue all your regular medications unless directed otherwise. I understand the above instructions and have no questions. Signature of Patient or Adult Escort Name of Responsible Adult Escort Signature of Nurse Date/Time Stand Alone Forms: Anesthesia Discharge Inst., Lauro Savage (DSU) Activity:: see above Diet:: see above Discharge Orders Discharge Orders: Discharge Order (Routine); Ordered 06/25/22 Ordered By: Chyna Mcleod
[2022-06-25 07:50] VITALS: BP 126/71; PULSE 72; RESP 16; TEMP 36.4; O2SAT 100
--- NOTE | 2022-06-25 08:01 | ANES.PREOP_ITS ---
General Info Date of Service Date Performed: 06/25/22 Height: 5 ft 0.75 in Weight: 62.1 kg Body Mass Index (BMI): 26.0 Surgical Procedure: Operation Date: 06/25/22 08:20 Proposed Procedure Side Surgeon p Colonoscopy Biopsy every 10cm Chyna Mcleod, DO Meds Allergies and Home Medications Allergies Allergy/AdvReac Type Severity Reaction Status Date / Time Sulfa (Sulfonamide Allergy Severe rash Verified 06/25/22 07:48 Antibiotics) venom-honey bee Allergy Intermediate sick - Verified 06/25/22 07:48 lightheaded, nausea Home Medication Medication Instructions Recorded meclizine 25 mg tablet 25 mg PO TID PRN #20 tabs 07/25/15 ascorbic acid (vitamin C) 1,000 mg 1,000 mg PO DAILY 08/30/16 tablet (Vitamin C) cyanocobalamin (vitamin B-12) 1,000 mcg PO DAILY 01/14/17 1,000 mcg tablet calcium citrate 315 mg-vitamin D3 2 tab PO BID 02/01/19 5 mcg (200 unit) tablet epinephrine 0.3 mg/0.3 mL 0.3 mg (0.3 mL) IM ONCE #1 pen 10/25/19 injection, auto-injector (EpiPen 2-Vincent) fluticasone furoate 27.5 2 spray intranasal DAILY PRN 06/06/20 mcg/actuation nasal spray,suspension sertraline 50 mg tablet 50 mg PO DAILY #90 tabs 10/26/21 ibuprofen 800 mg tablet 800 mg PO BID PRN pain or 02/10/22 inflammation #60 tabs Current Visit Medications: Current Medications Generic Name Dose Route Start Last Admin Trade Name Conce[place]ión PRN Reason Stop Dose Admin Hyoscyamine Sulfate 0.125 mg 06/25/22 08:10 Hyoscyamine 0.125 Mg Sl/Oral/Chew SL DIRECTED PRN Ringer's Solution 1,000 mls @ 80 mls/hr 06/25/22 06:00 IV 07/24/22 23:59 [facility]ION [facility] IV Miscellaneous Supplies 1 each 06/25/22 06:00 Iv Access IV 07/24/22 23:59 DIRECTED [facility] Ondansetron HCl 4 mg 06/25/22 08:10 Ondansetron 4 Mg/2 Ml Vial IVP Q4H PRN PRN Nausea / Vomiting Sodium Chloride 0 ml 06/25/22 06:00 Normal Saline Flush 10 Ml Syr IV 07/24/22 23:59 PRN PRN Sodium Chloride 0 ml 06/25/22 06:00 Normal Saline 10 Ml Vial IJ 07/24/22 23:59 DIRECTED PRN Sterile Water 0 ml 06/25/22 06:00 Water,Injection,Sterile 10 Ml Vial IJ 07/24/22 23:59 DIRECTED PRN PFSH Active Problems Active Problems: Problem Status Onset Code Complex tear of medial meniscus, current injury, left knee, subsequent encounter 08/13/16 S83.232D Allergic rhinitis 05/04/11 J30.9 Exercise-induced asthma 05/04/11 J45.990 De Quervain's tenosynovitis 04/16/15 M65.4 Depressive disorder 05/04/11 F32.9 Fibromyalgia M79.7 Acute medial meniscal injury of left knee 08/13/16 S83.8X2A Herpes simplex 05/04/11 B00.9 Lump or mass in breast 05/04/11 N63.0 Myalgia and myositis 05/04/11 Neurogenic thoracic outlet syndrome 03/12/16 G54.0 Obstructive sleep apnea 06/29/16 G47.33 Pes anserinus bursitis of both knees 08/26/16 M70.51, M70.52 Rectal/anal hemorrhage 05/04/11 K62.5 Rheumatoid arthritis 05/04/11 M06.9 Ulcerative colitis, unspecified 05/04/11 K51.90 Internal derangement of right knee M23.91 Trochanteric bursitis, left hip M70.62 Radial styloid tenosynovitis 04/16/15 M65.4 Vitamin D deficiency E55.9 Left upper extremity numbness R20.0 Hx of breast cancer Z85.3 Diminished libido R68.82 Stress incontinence N39.3 Hx of macrocytic anemia Z86.2 Left hip pain M25.552 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 S/P B/L PARTIAL MASTECTOMIES, [facility] GARC[facility] ONCOLOGY Obesity Onychia of finger (05/04/11) Premenopausal menorrhagia Ulcerative proctitis Surgical History Surgical History Arthroplasty of knee left, meniscal repair Cholecystectomy (03/21/94) [facility] [place] Colonoscopy - MAC (03/08/17) 2013 CYST REMOVAL NECK Hx of [place]ariatric [place] [facility] [place] [facility] [place], Sleeve Gastrectomy, Dec 2016 Ligation of fallopian tube Oophrectomy, Right sleeve gastrectomy (01/03/17) [facility] [place] Status post mastectomy pt. states it was nota masdtectomy b ut a lumpectomy Tobacco Smoking/Tobacco Use Status: Former Tobacco Use Alcohol Alcohol Intake: current Alcohol intake frequency: 0-2 drinks per day Alcohol type: wine Substance Use Substance use: Never Substance use type: does not use Vital Signs and Lab Results Vital Signs Most Recent Vital Signs in EMR: Most Recent Vital Signs Temp Pulse Resp BP Pulse Ox 36.4 C L 72 16 126/71 100 06/25/22 07:50 06/25/22 07:50 06/25/22 07:50 06/25/22 07:50 06/25/22 07:50 Lab Results Blood Type / Crossmatch: No Data to Display Complete Blood Count: No Data to Display Complete Metabolic Panel: No Data to Display Liver Function Panel: No Data to Display Coagulation Panel: No Data to Display Cardiac Panel: No Data to Display Arterial Blood Gas: No Data to Display Venous Blood Gas: No Data to Display Pancreas Panel: No Data to Display Thyroid Panel: No Data to Display Infectious Disease: No Data to Display Blood Cultures: No Data to Display Toxicology Panel: No Data to Display Imaging and Studies Imaging and Studies Study information below may be from another EMR and interpreted by another provider. Please see original notes in EMR for more complete details. EKG Summary: 06/02/2020:Exam: Resting ECG Patient Location: E HR:70 bpm ECG Measurements Heart Rate 70 AXIS OH 153 P 40 QRSd 99 QRS -19 QT 391 T40 QTc 422 Conclusion Sinus rhythm...normal P axis, V-rate 60- 99 I have reviewed and I agree with the emergency room physician's ECG interpretation. Electronically signed by: <Electronically signed by Annamaria Natarajan M.D. in [place]> 06/03/20 1235 Stress Test Summary: 07/01/2020: Stress ECG Conclusion 1. The resting electrocardiogram was normal 2. The patient exercised on the Levi protocol and completed a workload of 13.46 METS, limited by fatigue 3. Normal heart rate and blood pressure response to exercise. The patient achieved greater than 100% of predicted heart rate for age 4. Electrocardiographically there was no evidence of myocardial ischemia 5. No dysrhythmias were observed Cardenas Treadmill Score is 11 which is Low risk. Anesthesia Assessment and Plan Anesthesia History Personal History: No History of Anesthesia Complications Family History: No Family History of Anesthesia Complications Exercise Tolerance Exercise Tolerance: Metabolic Equivalents>4 Pertinent Negatives Pertinent Negatives: No Symptoms of GERD, No Major Cardiovascular Symptoms or Complaints and No Major Pulmonary Symptoms or Complaints Cardiac & Pulmonary Exam Cardiac Exam: Normal S1/S2 Heart Sounds Pulmonary Exam: Clear Bilateral Breath Sounds Implantable Cardiac Device Does patient have a Pacemaker or an ICD?: No Airway Exam Known Difficult Airway: No Mallampati Class: 2 Mouth Opening: Normal (> 3cm) Thyromental Distance: Greater than 3 cm Neck Range of Motion: Full ROM Neck Circumference: Normal Teeth Condition: Removable Dentures/Plates Upper ASA Classification ASA Score: ASA 2 Emergency Case?: No NPO Status NPO Status: NPO Clears >2 hours, Solids >8 hours Anesthesia Plan Resuscitation Status: Full Code Anesthesia Technique: General Anesthesia Airway Planned: Natural Airway Monitors Used: Standard Monitors
[2022-06-25 08:04] VITALS: BMI 26.0
[2022-06-25] MEDS: Lactated Ringers 1,000 ML 80 ML IV (08:15)
--- NOTE | 2022-06-25 08:39 | BOWEL_PTH ---
PATIENT: Adali Gomez LOC: [facility] U#:[id number] AGE/SX: 61/F ROOM: RE06/25/[address]: Chyna Mcleod : 1960 BED: DIS: 06/25/2022 SPEC #: [id number] RECD: 06/25/22 12:45 STATUS: HERBERT RE #: [id number] JOANIE: 06/25/22 08:[address]: Chyna Mcleod DEPT: Surgical Specimen RECD BY: Jannet Mobley ENTERED: 06/25/22 12:48 SP TYPE: Bowel OTHR DR: Kira Ying DO Tissues: 1 - BIOPSY BOWEL 2 - BIOPSY BOWEL 3 - BIOPSY BOWEL 4 - BIOPSY BOWEL 5 - BIOPSY BOWEL 6 - BIOPSY BOWEL 7 - BIOPSY BOWEL 8 - BIOPSY BOWEL 9 - BIOPSY BOWEL 10 - BIOPSY BOWEL Procedures: GROSS AND MICRO LEVEL 4 Comments: [id number]
[2022-06-25 09:00] VITALS: BP 112/64; PULSE 70; RESP 16; TEMP 36.4; O2SAT 100
--- NOTE | 2022-06-25 09:06 | W.ANESPOSTOP ---
Postoperative Evaluation Date, Time and Location Date Performed: 06/25/22 Time Performed: :07 Patient Location: Day Surgery Unit Vital Signs Most Recent Imported Vital Signs: Most Recent Vital Signs Temp Pulse Resp BP Pulse Ox 36.4 C L 70 16 112/64 100 06/25/22 09:00 06/25/22 09:00 06/25/22 09:00 06/25/22 09:00 06/25/22 09:00 Pain Score Most Recent Pain Score: Most Recent Pain Score Pain Level 0 06/25/22 09:00 Assessment Mental Status: Awake (Alert & Oriented to Patient Baseline) Airway and Respiratory Function: Patent airway with normal (patient baseline) respiratory exam Cardiovascular Function: Hemodynamically Stable Hydration Status: Adequately Hydrated Nausea & Vomiting: No Nausea or Vomiting Pain: Pt. Denies Any Pain Peripheral Nerve Block: Patient did not receive a nerve block
[2022-06-25 09:28] VITALS: BP 131/69; PULSE 79; RESP 16; TEMP 36.4; O2SAT 100
== END 2022-06-25 09:40 | disposition home or self-care (01) ==
PROVIDERS: PCP Student in an Organized Health Care Education/Training Program; Visit Provider Surgery
PROC: 0DJD8ZZ Inspection of Lower Intestinal Tract, Via Natural or Artificial Opening Endoscopic (ICD-10-PCS; CPT 45378; principal; 2022-06-25 08:15)
DX: Z09 Encounter for follow-up examination after completed treatment for conditions other than malignant neoplasm (principal); Z87.19 Personal history of other diseases of the digestive system
CPT/HCPCS: 45380; 88305

== ENCOUNTER 2022-11-27 09:13 | Outpatient (REF) | payer BC, SELFPAY ==
[2022-11-29 10:02] LABS: Measles IgG Antibody Positive (See Note)
[2022-11-29 10:05] LABS: Mumps Antibody IgG Positive (See Note)
[2022-11-29 10:09] LABS: Rubella IgG Ab (UVM) Positive (See Note)
== END 2022-11-27 09:14 | disposition home or self-care (01) ==
LOC: NCHCN 09:13
PROVIDERS: PCP Student in an Organized Health Care Education/Training Program; Visit Provider Physician Assistant
DX: Z20.4 Contact with and (suspected) exposure to rubella; Z20.828 Contact with and (suspected) exposure to other viral communicable diseases
CPT/HCPCS: 86735; 86762; 86765

== ENCOUNTER 2022-12-09 20:11 | Outpatient (REF) | payer BC, SELFPAY ==
[2022-12-09 11:32] LABS: Abs Immature Grans 0.01 10^3/uL (0.0-0.06); Absolute Basophil Count 0.03 10^3/uL (0.0-0.2); Absolute Eosinophil Count 0.08 10^3/uL (0.0-0.7); Absolute Monocyte Count 0.23 10^3/uL (0.1-0.8); Absolute Neutrophil Count 4.21 10^3/uL (1.2-6.7); Basophils % 0.5; Eosinophils % 1.4; HCT 41.2 % (36.0-46.0); HGB 14.5 g/dL (11.2-15.7); Immature Grans % 0.2; MCH 33.6 pg (27.0-33.0); MCHC 35.2 % (32.0-36.0); MCV 96 fL (80-95); MPV 11.6 fL (8.0-11.0); Monocytes % 4.1; Neutrophils % 75.8; Platelet Count 187 10^3/uL (130-400); RBC 4.31 10^6/uL (3.93-5.22); RDW 11.6 % (11.7-14.6); RDW-SD 40.6 fL; WBC 5.56 10^3/uL (4.4-10.8)
[2022-12-09 11:44] LABS: PTT Activated 25.2 sec (21.5-31.9)
[2022-12-09 12:04] LABS: ALT 20 U/L (14-59); AST 22 U/L (15-37); Albumin 4.3 g/dL (3.4-5.0); Alkaline Phosphatase 93 U/L (46-116); Anion Gap 7.4 mmol/L (3-11); BUN 11 mg/dL (7-18); Bilirubin, Total 0.6 mg/dL (0.2-1.0); CO2 29.6 mmol/L (21.0-32.0); CREATININE 0.6 mg/dL (0.55-1.02); Calcium 9.5 mg/dL (8.5-10.1); Chloride 103 mmol/L (98-107); Estimated GFR 100.17 (mL/min/1.73m2); Glucose 95 mg/dL (74-106); Potassium 4.7 mmol/L (3.5-5.1); Sodium 140 mmol/L (136-145); Total Protein 7.6 g/dL (6.4-8.2)
== END 2022-12-09 20:12 | disposition home or self-care (01) ==
LOC: LBN 20:11
PROVIDERS: PCP Student in an Organized Health Care Education/Training Program; Visit Provider Nurse Practitioner Family
DX: R23.3 Spontaneous ecchymoses; R19.09 Other intra-abdominal and pelvic swelling, mass and lump; R22.2 Localized swelling, mass and lump, trunk
CPT/HCPCS: 80053; 85025; 85730

== ENCOUNTER 2023-12-30 01:02 | Outpatient (CLI) | payer MEDICARE, BC, SELFPAY ==
--- NOTE | 2023-12-30 09:12 | DI.RAD_ITS ---
Exam(s) XR FINGER RT MIDDLE EXAM: XR FINGER RT MIDDLE CLINICAL HISTORY: evaluate FOR FX OR MALLET FINGER,PAIN,R52. TECHNIQUE: 2D digital imaging was performed. COMPARISON: No exams were available for comparison FINDINGS: 3 views There is mild flexion deformity at the DIP joint of the 3rd-middle finger. On the lateral view there 2 small calcific densities in the soft tissue immediately adjacent to the dorsal aspect of the head of middle phalanx, possibly avulsion injury. There does not appear to be bone defect in the distal p halanx. There are mild-moderate degenerative changes in the DIP joint also noted. The proximal inte rphalangeal joint and metacarpophalangeal joint appear unremarkable. No metallic foreign bodies evid ent. IMPRESSION: Findings as above. The flexion deformity may imply unopposed flexion due to injury of the extensor t endon. DATA REPOSITORY: RADIATION DOSE DELIVERED:
--- NOTE | 2023-12-30 09:12 | DI.RAD_ITS ---
Exam(s) XR KNEE RT 3V AP,LAT,RODOLFO EXAM: XR KNEE RT 3V AP,LAT,RODOLFO CLINICAL HISTORY: evaluate pathology,rt knee pain, m25.561. TECHNIQUE: 2D digital imaging was performed. COMPARISON: No exams were available for comparison FINDINGS: 3 views No evidence acute fracture. Small amount of increased joint fluid noted. There are mild degenerativ e changes in the medial compartment. Small marginal osteophytes seen off the medial compartment desp ite normal height of the medial compartment. Lateral compartment appears unremarkable. Bone density normal. No osseous lesions. No osteochondral defects seen. IMPRESSION: Mild degenerative changes in the medial compartment. Small amount of increased joint fluid. DATA REPOSITORY: RADIATION DOSE DELIVERED:
== END 2023-12-30 01:22 ==
PROVIDERS: PCP Student in an Organized Health Care Education/Training Program; Visit Provider Nurse Practitioner Family
DX: M25.561 Pain in right knee; M79.644 Pain in right finger(s)
CPT/HCPCS: 73562; 73140

== ENCOUNTER 2024-01-27 00:40 | Outpatient (CLI) | payer MEDICARE, BC, SELFPAY ==
--- NOTE | 2024-01-27 | DI.MRI_ITS ---
Exam(s) MR UPPER EXTREMITY RT WO EXAM: MR UPPER EXTREMITY RT WO CLINICAL HISTORY: MALLET FINGER RIGHT HAND M20.11 EVAL RT 3RD FINGER DEFORMITY, EXTENSOR TECHNIQUE: Multiplanar multisequence MRI was performed without intravenous contrast. COMPARISON: CR XR FINGER RT MIDDLE from 12/30/2023 FINDINGS: BONES/JOINTS: No fracture or contusion pattern. There is mild marrow edema seen in the proximal aspec t of the middle phalanx and portions of the distal phalanx which may be reactive. MUSCULOTENDINOUS STRUCTURES: There is a tear of the lateral bands of the extensor digitorum communis tendon of the middle finger. There is mild edema seen in the soft tissues along the dorsal aspect of the 3rd finger at the level of the middle phalanx and the DIP joint. There is a small joint effusio n. The flexor tendons are intact. SOFT TISSUES: There is mild edema seen in the soft tissues along the dorsum of the middle finger at t he level of the DIP joint and the middle phalanx. No focal fluid collection is seen to suggest an ab scess. OTHER FINDINGS: None. IMPRESSION: Tear of the extensor digitorum communis tendon of the middle finger from its insertion site on the ba se of the distal phalanx. There is surrounding edema present. There is also a small joint effusion in the DIP joint. DATA REPOSITORY:
== END 2024-01-27 01:00 ==
PROVIDERS: PCP Student in an Organized Health Care Education/Training Program; Visit Provider Physician Assistant
DX: S66.312A Strain of extensor muscle, fascia and tendon of right middle finger at wrist and hand level, initial encounter (principal); X58.XXXA Exposure to other specified factors, initial encounter
CPT/HCPCS: 73218

== ENCOUNTER 2024-07-12 16:17 | Outpatient (REF) | payer MEDICARE, BC, SELFPAY ==
[2024-07-12 15:53] LABS: HGB 13.9 g/dL (11.2-15.7)
[2024-07-12 15:56] LABS: Anion Gap 4.6 mmol/L (3-11); BUN 11 mg/dL (7-18); CO2 30.4 mmol/L (21.0-32.0); CREATININE 0.7 mg/dL (0.55-1.02); Calcium 8.9 mg/dL (8.5-10.1); Calculated LDL 65 mg/dL (<100); Chloride 106 mmol/L (98-107); Cholesterol 189 mg/dL (<200); Estimated GFR 95.92 (mL/min/1.73m2); Glucose 84 mg/dL (74-106); HDL Cholesterol 101 mg/dL (>or=50); Potassium 4.2 mmol/L (3.5-5.1); Sodium 141 mmol/L (136-145); Triglyceride 117 mg/dL (<150)
== END 2024-07-12 16:18 | disposition home or self-care (01) ==
LOC: LBN 16:17
PROVIDERS: PCP Nurse Practitioner Adult Health; Visit Provider Student in an Organized Health Care Education/Training Program
DX: K51.90 Ulcerative colitis, unspecified, without complications (principal); Z87.19 Personal history of other diseases of the digestive system; J45.990 Exercise induced bronchospasm; Z13.220 Encounter for screening for lipoid disorders
CPT/HCPCS: 80048; 80061; 85018

== ENCOUNTER → 2024-09-24 10:22 | Outpatient (BNVA) | payer MEDICARE, BC, SELFPAY | PROVIDERS: PCP Nurse Practitioner Adult Health; Referring Provider Nurse Practitioner Adult Health; Visit Provider Student in an Organized Health Care Education/Training Program | DX: M70.61 Trochanteric bursitis, right hip (principal) | CPT/HCPCS: 20610; J1010 ==